=== PATIENT | female | born 1960 | race Caucasian/White ===

== ENCOUNTER 2017-04-09 23:53 | Emergency (ER) | payer OTHER ==
[~2017-04-09] VITALS: Ht 149.9 cm; Wt 49.0 kg
[2017-04-09] MEDS ORDERED: ETOMIDATE 20 MG INJ ONE (23:59)
[2017-04-09] MEDS ORDERED: SUCCINYLCHOLINE CHLORIDE 100 MG/5 ML SYG IV ONE (23:59)
[2017-04-10] VITALS: Ht 149.9 cm; Wt 49.0 kg
[2017-04-10] MEDS ORDERED: SOD CHLORIDE 0.9% 1,000 ML IV STA (00:07)
[2017-04-10] MEDS ORDERED: PROPOFOL 100 ML IV STA (00:07)
[2017-04-10] MEDS ORDERED: SUCCINYLCHOLINE CHLORIDE 100 MG/5 ML SYG IV STA (00:07)
[2017-04-10] MEDS ORDERED: ETOMIDATE 20 MG INJ IV STA (00:07)
[2017-04-10 00:20] LABS: ADD SCAN DIFF NO
[2017-04-10 00:23] LABS: BASOPHILS % 0.1 % (0.0-2.0); EOSINOPHILS # 0.1 10^3/ul (0.0-0.5); EOSINOPHILS % 0.9 % (0.0-7.0); HEMATOCRIT 30.5 % (37.0-47.0); LYMPHOCYTES # 0.7 10^3/ul (0.8-2.9); LYMPHOCYTES % 8.9 % (15.0-51.0); MEAN CORPUSCULAR HEMOGLOBIN 30.5 pg (29.0-33.0); MEAN CORPUSCULAR HGB CONC 32.8 g/dl (32.0-37.0); MEAN PLATELET VOLUME 8.9 fl (7.4-10.4); MONOCYTE # 0.7 10^3/ul (0.3-0.9); MONOCYTES % 8.1 % (0.0-11.0); NEUTROPHIL # 6.3 10^3/ul (1.6-7.5); NEUTROPHILS % 78.8 % (39.0-77.0); PLATELET COUNT 229 10^3/UL (140-415); RED BLOOD COUNT 3.28 10^6/ul (4.20-5.40); RED CELL DISTRIBUTION WIDTH 17.4 % (11.5-14.5)
[2017-04-10] MEDS ORDERED: LABETALOL HCL 20MG INJ IV PRN (00:30)
[2017-04-10 00:39] LABS: INR 1.04; PROTIME 13.6 Sec (12.2-14.2); PT RATIO 1.1
--- NOTE | 2017-04-10 00:39 | RADRPT ---
PROCEDURE: Noncontrast CT Head. CLINICAL INDICATION: Code stroke TECHNIQUE: Noncontrast CT of the head was obtained. The administered radiation dose was CTDI vol = 42 mGy, DLP = 720 mGy-cm. COMPARISON: No pertinent prior examinations were submitted for comparison. FINDINGS: The ventricles and cortical sulci are mild to moderately enlarged. There is mild to moderate decrea sed attenuation within the periventricular and subcortical white matter compatible with chronic micr ovascular changes. There is no acute intracranial hemorrhage or extra-axial fluid collection. There is no mass effect . No midline shift is identified. There is no loss of sykes-white differentiation to suggest acute in farction. The orbits are within normal limits. The paranasal sinuses are well aerated. No destructive osseous lesion is identified. IMPRESSION: No acute findings. Mild to moderate diffuse parenchymal volume loss and chronic microvascular salgado es. Findings were discussed with Divya Williamson R.N. at approximately 04/10/2017 12:35:13 AM. RPTAT: HIKT .Aníbal Najera MD, MD Date Time Electronically viewed and signed by .Aníbal Najera MD, on 04/10/2017 00:39 .T/
--- NOTE | 2017-04-10 00:39 | RADRPT ---
PROCEDURE: XR Chest. CLINICAL INDICATION: Shortness of breath. TECHNIQUE: AP Portable chest. COMPARISON: No pertinent prior examinations were submitted for comparison. FINDINGS: The cardiomediastinal silhouette is normal. The lungs are clear. The osseous structures are unrema rkable. An endotracheal tube tip is in the mid to distal trachea, 2 cm level of the satinder. A left subclavi an central venous catheter tip is in the superior vena cava. IMPRESSION: No acute findings. RPTAT: HIKT .Aníbal Najera MD, MD Date Time Electronically viewed and signed by .Aníbal Najera MD, MD on 04/10/2017 00:39 .T/
[2017-04-10 00:40] LABS: PARTIAL THROMBOPLASTIN TIME 50.2 Sec (25.0-35.0)
[2017-04-10 00:48] LABS: ALANINE AMINOTRANSFERASE 34 IU/L (13-69); ALBUMIN 3.5 g/dl (3.3-4.9); ALBUMIN/GLOBULIN RATIO 1.06; ALKALINE PHOSPHATASE 177 IU/L (42-121); ANION GAP 18 (8-16); ASPARTATE AMINO TRANSFERASE 42 IU/L (15-46); BILIRUBIN,INDIRECT 0.1 mg/dl (0-1.1); BILIRUBIN,TOTAL 0.1 mg/dl (0.2-1.3); BLOOD UREA NITROGEN 13 mg/dl (7-20); CALCIUM 8.8 mg/dl (8.4-10.2); CARBON DIOXIDE 24 mmol/L (21-31); CHLORIDE 96 mmol/L (97-110); CREATININE 0.54 mg/dl (0.44-1.00); GLUCOSE 230 mg/dl (70-220); SODIUM 133 mmol/L (135-144); TOTAL PROTEIN 6.8 g/dl (6.1-8.1)
[2017-04-10 01:01] LABS: TROPONIN-I < 0.012 ng/ml (0.00-0.12)
[2017-04-10 01:42] LABS: ADD UMIC YES; UR ASCORBIC ACID NEGATIVE (NEGATIVE); UR BACTERIA FEW /HPF (NONE SEEN); UR BILIRUBIN (Dip) NEGATIVE (NEGATIVE); UR BLOOD (Dip) 2+ mg/dL (NEGATIVE); UR CLARITY CLOUDY (CLEAR); UR COLOR YELLOW (YELLOW); UR GLUCOSE (Dip) 2+ mg/dL (NEGATIVE); UR KETONES (Dip) NEGATIVE (NEGATIVE); UR LEUKOCYTE ESTERASE (Dip) 3+ Leu/ul (NEGATIVE); UR MUCUS FEW /HPF (NONE SEEN); UR NITRITE (Dip) POSITIVE (NEGATIVE); UR RBC 9 /HPF (0-5); UR SPECIFIC GRAVITY (Dip) 1.016 (1.003-1.030); UR TOTAL PROTEIN (Dip) NEGATIVE (NEGATIVE); UR UROBILINOGEN (Dip) NEGATIVE (NEGATIVE)
[2017-04-10 01:45] LABS: BARBITURATES Negative (NEGATIVE); BENZODIAZEPINES Negative (NEGATIVE); CANNABINOIDS Negative (NEGATIVE); COCAINE Negative (NEGATIVE); OPIATES Positive (NEGATIVE)
[2017-04-10] MEDS ORDERED: FLO1 PO (02:05)
[2017-04-10] MEDS ORDERED: PRED5TAB PO (02:05)
[2017-04-10] MEDS ORDERED: MYCO360T PO (02:05)
[2017-04-10] MEDS ORDERED: TACR1CAP PO (02:05)
--- NOTE | 2017-04-10 03:03 | RADRPT ---
PROCEDURE: MR angiogram of the brain with and without contrast. CLINICAL INDICATION: Altered level of consciousness. TECHNIQUE: An MR angiogram of the brain was performed on a Signa HDxt 3 tiffany scanner. 3-D time-of -flight images of the [place] and vertebrobasilar systems were obtained before and after th e administration of 10 cc Magnevist intravenous contrast. Maximum intensity projection images were also obtained. Images were viewed on a PACS workstation. COMPARISON: None. FINDINGS: Bilateral distal internal carotid arteries are of normal course and caliber. Bilateral anterior and middle cerebral arteries are within normal limits. Bilateral distal vertebral arteries are of norm al course and caliber. The basilar artery is intact. Bilateral posterior cerebral arteries are with in normal limits. There is no large branch vessel stenosis or occlusion. There is no aneurysm or v ascular malformation. IMPRESSION: Unremarkable MR angiogram of the brain. .Cristofer Escobar MD, MD Date Time Electronically viewed and signed by .Cristofer Escobar MD, on 04/10/2017 03:02 .T/
--- NOTE | 2017-04-10 03:12 | RADRPT ---
PROCEDURE: MRI Brain without contrast. CLINICAL INDICATION: Altered mental status. TECHNIQUE: An MRI of the brain was performed on a Signa HDxt 3 tiffany scanner utilizing the followin g sequences: Axial T2 FLAIR, axial T2 PROP, coronal T2 gradient echo, sagittal T1 FLAIR, and axial d iffusion-weighted (EPI technique, l=[id number]) with ADC mapping. No intravenous contrast was given. Im ages were viewed on a PACS workstation. COMPARISON: Correlation is made with the CT done 04/10/2017. FINDINGS: The ventricles and cortical sulci are prominent consistent with mild cerebral volume loss. There ar e patchy areas of increased T2/FLAIR signal intensity within the periventricular white matter consis tent with mild chronic ischemic changes secondary to small vessel disease. There are chronic ischemi c changes within the geraldine. There are no areas of restricted diffusion. There is no mass effect or m idline shift. There is no acute intracranial hemorrhage or abnormal extra-axial collection. Normal signal voids are seen within the bilateral cavernous carotids. There is thinning of bilateral orbi blayne lens. Visualized paranasal sinuses and mastoid air cells are clear. IMPRESSION: No acute intracranial abnormality identified. Mild age-related volume loss and chronic ischemic white matter disease. .Cristofer Escobar MD, MD Date Time Electronically viewed and signed by .Cristofer Escobar MD, MD on 04/10/2017 03:11 .T/
[2017-04-10] MEDS ORDERED: AZTREONAM 1 GM/NS (PMX) 50 ML IVPB ONE (03:44)
[2017-04-10] MEDS ORDERED: MEROPENEM 1 GM/100 ML (PMX) 100 ML IVPB ONE (03:44)
[2017-04-10] MEDS ORDERED: SODIUM CHLORIDE 0.9% 1L BAG IV* ONE (03:44)
[2017-04-10 06:38] VITALS: BP 118/70; PULSE 94; RESP 17; TEMP 98.4
[2017-04-11 08:28] LABS: AADO2 Arterial 128.5 mmHg (7.0-24.0); Arterial Base Excess -2.4 mmol/L (-3.0-3); Arterial COHb 0.1 % (0.0-3.0); Arterial Fraction of Oxyhgb 98.6 % (93.0-99.0); Arterial HCO3 21.3 mmol/L (22.0-26.0); Arterial MetHb 0.3 % (0.0-1.5); Arterial Total Hemglobin 9.8 g/dl (12.0-18.0); MODE VENT - AC
--- NOTE | 2017-05-20 23:27 | ERD ---
ER Documentation Chief Complaint Date/Time DATE: 05/20/17 TIME: 23:25 Chief Complaint altered from SNF, non-verbal, agonal breathing HPI This is a 56 year female is altered from [facility] facility is nonverbal with agonal breathing. No fevers no chills no nausea no vomiting. Patient ambulates rate relate any relevant history. History per EMS run sheet custodial transfer sheet ROS All systems reviewed and are negative except as per history of present illness. Medications Home Meds Reported Medications Fludrocortisone* (Florinef*) 0.1 Mg Tab, 0.1 MG PO DAILY, TAB 04/10/17 Prednisone* (Prednisone*) 5 Mg Tab, 5 MG PO DAILY, TAB 04/10/17 Mycophenolate Sodium* (Myfortic*) 360 Mg Tablet.dr, 360 MG PO Q12, TAB TAKE 360 MG BY MOUTH Q8AM AND Q8PM 04/10/17 Tacrolimus* (Tacrolimus*) 1 Mg Capsule, 3 MG PO Q12, CAP TAKE 3mg BY MOUTH Q12H: 8AM AND 8PM 04/10/17 Allergies Allergies: Coded Allergies: NSAIDS (Non-Steroidal Anti-Inflamma (Verified Allergy, Intermediate, ) Penicillins (Verified Allergy, Intermediate, 04/10/17) ampicillin (Verified Allergy, Intermediate, 04/10/17) aspirin (Verified Allergy, Intermediate, 04/10/17) ciprofloxacin (Verified Allergy, Intermediate, 04/10/17) codeine (Verified Allergy, Intermediate, 04/10/17) PMhx/Soc History of Surgery: Yes (LIVER & KIDNEY TRANSPLANT, L HIP REPLACEMENT) Hx Psychiatric Problems: Yes (DEPRESSION) Hx Miscellaneous Medical Probl: Yes (DM2, RETINOPATHY, CHRONIC AP, BACK PAIN) Smoking Status: Unknown if ever smoked Physical Exam Physical Exam Const: [] Head: Atraumatic Eyes: Normal Conjunctiva ENT: Normal External Ears, Nose and Mouth. Neck: Full range of motion..~ No meningismus. Resp: Clear to auscultation bilaterally Cardio: Regular rate and rhythm, no murmurs Abd: Soft, non tender, non distended. Normal bowel sounds Skin: No petechiae or rashes Back: No midline or flank tenderness Ext: No cyanosis, or edema Neur: Obtunded Psych: Normal Mood and Affect Results 24 hrs Laboratory Tests Test 04/10/17 00:03 04/10/17 00:05 04/10/17 00:07 04/10/17 00:30 Bedside Glucose 225mg/dL White Blood Count 8.010^3/ul Red Blood Count 3.2810^6/ul Hemoglobin 10.0g/dl Hematocrit 30.5% Mean Corpuscular Volume 93.0fl Mean Corpuscular Hemoglobin 30.5pg Mean Corpuscular Hemoglobin Concent 32.8g/dl Red Cell Distribution Width 17.4% Platelet Count 90490^3/UL Mean Platelet Volume 8.9fl Neutrophils % 78.8% Lymphocytes % 8.9% Monocytes % 8.1% Eosinophils % 0.9% Basophils % 0.1% Nucleated Red Blood Cells % 0.0/100WBC Neutrophils # 6.310^3/ul Lymphocytes # 0.710^3/ul Monocytes # 0.710^3/ul Eosinophils # 0.110^3/ul Basophils # 0.010^3/ul Nucleated Red Blood Cells # 0.010^3/ul Prothrombin Time 13.6Sec Prothrombin Time Ratio 1.1 INR International Normalized Ratio 1.04 Activated Partial Thromboplast Time 50.2Sec Sodium Level 133mmol/L Potassium Level 5.0mmol/L Chloride Level 96mmol/L Carbon Dioxide Level 24mmol/L Anion Gap 18 Blood Urea Nitrogen 13mg/dl Creatinine 0.54mg/dl Glucose Level 230mg/dl Hemoglobin A1c 5.2% Lactic Acid Level 3.0mmol/L Calcium Level 8.8mg/dl Total Bilirubin 0.1mg/dl Direct Bilirubin 0.00mg/dl Indirect Bilirubin 0.1mg/dl Aspartate Amino Transf (AST/SGOT) 42IU/L Alanine Aminotransferase (ALT/SGPT) 34IU/L Alkaline Phosphatase 177IU/L Troponin I < 0.012ng/ml Total Protein 6.8g/dl Albumin 3.5g/dl Globulin 3.30g/dl Albumin/Globulin Ratio 1.06 Blood Gas Specimen Source Blood arterial Arterial Blood Date Drawn 04/10/2017 1:00:00 AM Arterial Blood pH (Temp corrected) 7.430 Arterial Blood pCO2 (Temp correct) 32.9mmhg Arterial Blood pO2 (Temp corrected) 551.6mmHG Arterial Blood HCO3 21.3mmol/L Arterial Blood Base Excess -2.4mmol/L Arterial Blood Oxygen Saturation 99.0mmHG Axel Test N/A Arterial Blood Gas Puncture Site Right Brachial Arterial Blood Carboxyhemoglobin 0.1% Arterial Blood Methemoglobin 0.3% Blood Gas A-a O2 Differential 128.5mmHg Oxyhemoglobin Percent 98.6% Total Hemoglobin 9.8g/dl Blood Gas Temperature 37.0C Blood Gas Respiration Rate 16.0 Blood Gas Actual Respiration Rate 25 Blood Gas Modality VENT - AC FiO2 100.0% Blood Gas Tidal Volume 500.0mL Blood Gas Low PEEP Setting 5.0cmH2O Blood Gas Inspiratory Pressure 33.0 Blood Gas Notified Whom KM Blood Gas Notified Time 04/10/2017 1:05:00 AM Urine Color YELLOW Urine Clarity CLOUDY Urine pH 6.0 Urine Specific [place] 1.016 Urine Ketones NEGATIVEmg/dL Urine Nitrite POSITIVEmg/dL Urine Bilirubin NEGATIVEmg/dL Urine Urobilinogen NEGATIVEmg/dL Urine Leukocyte Esterase 3+Chad/ul Urine Microscopic RBC 9/HPF Urine Microscopic WBC > 182/HPF Urine Bacteria FEW/HPF Urine Mucus FEW/HPF Urine Hemoglobin 2+mg/dL Urine Glucose 2+mg/dL Urine Total Protein NEGATIVEmg/dl Urine Opiates Screen Positive Urine Barbiturates Negative Urine Amphetamines Screen Negative Urine Benzodiazepines Screen Negative Urine Cocaine Screen Negative Urine Cannabinoids Negative Current Medications Medications (Trade) Dose Ordered Sig/Alexei Route PRN Reason Start Time Stop Time Status Last Admin Dose Admin Sodium Chloride (NS) 1,000 ml @ 1,000 mls/hr Q1H STAT IV 04/10/17 00:07 04/10/17 01:06 DC 04/10/17 00:31 Labetalol HCl (Labetalol) 20 mg Q20M PRN IV ELEVATED BLOOD PRESSURE 04/10/17 00:30 04/10/17 07:32 DC 04/10/17 00:17 Succinylcholine Chloride (Anectine Syringe) 100 mg ONCE STAT IV 04/10/17 00:07 04/10/17 00:09 DC 04/10/17 00:18 Etomidate 20 mg 20 mg ONCE STAT IV 04/10/17 00:07 04/10/17 00:09 DC 04/10/17 00:07 Propofol (Diprivan) 100 ml @ 2.25 mls/hr ONCE STAT IV 04/10/17 00:07 04/10/17 07:32 DC 04/10/17 00:18 Sodium Chloride 1520 ml 1,520 ml BOLUS OVER 2 HOURS ONCE IV* 04/10/17 03:44 04/10/17 03:47 DC 04/10/17 04:05 Meropenem 100 ml @ 200 mls/hr ONCE ONCE IVPB 04/10/17 03:44 04/10/17 04:13 DC 04/10/17 04:53 Aztreonam (Azactam 1gm/NS (Pmx)) 50 ml @ 100 mls/hr ONCE ONCE IVPB 04/10/17 03:44 04/10/17 04:13 DC 04/10/17 04:21 Etomidate (Amidate) 20 mg STK-MED ONCE .ROUTE 04/09/17 23:59 04/10/17 20:29 DC Succinylcholine Chloride (Anectine Syringe) 100 mg STK-MED ONCE IV 04/09/17 23:59 04/10/17 20:29 DC Procedures/MDM Endotracheal Intubation by me: Pre assessment performed. See preceding note for details. Pre-oxygenation performed with 100% oxygen RSI: Performed w/o complication or hypoxic events. Medications as ordered. Blade: [Mac 4] ET Tube: 7.5 cm Depth: 23 cm at the lip Intubation confirmed by colorimetric CO2, equal breath sounds, quiet over the stomach. Chest X-ray 1V Interpreted by me: 2 cm above the satinder ET tube. Normal soft tissue, No pneumothorax. Central Line Placement by me: Patient consented, sterilely draped, full prep, gown, glove, mask, time out performed. Anesthesia: 1% lidocaine locally Location: Left subclavian Device: Multiple lumen Technique: Seldinger technique. Secured with suture. Results: Venous return from all ports with easy saline flush. No complications. [Chest X-ray 1V Interpreted by me: Central line in SVC, Normal soft tissue, No evidence of pneumothorax.] Medical decision-m[age] year female acute alteration in mental status or necessitating mechanical ventilation. Patient at this point has been stabilized but is critical. Patient will be transferred to [place] pending stability Critical Care: Time: 35 minutes Treatments/Evaluations: Close monitoring and treatment of unstable vital signs, cardiorespiratory, and neurologic status, while maintaining tight balance of fluid, respiratory, and cardiac interventions. Departure Diagnosis: Primary Impression: Altered level of consciousness Condition: Critical MARIO MOELLER May 20, 2017 23:27
== END 2017-04-10 07:31 | disposition short-term general hospital (02) ==
LOC: E/R 23:53
DX: R40.4 Transient alteration of awareness (principal); R40.2212 Coma scale, best verbal response, none, at arrival to emergency department; R40.2352 Coma scale, best motor response, localizes pain, at arrival to emergency department; R40.2122 Coma scale, eyes open, to pain, at arrival to emergency department; R06.02 Shortness of breath; Z96.642 Presence of left artificial hip joint
CPT/HCPCS: 31500; 36415; 36556; 36600; 70450; 70545; 70551; 71010; 80053; 80307; 81001; 82803; 82962; 83036; 83605; 84484; 85025; 85610; 85730; 93005; 94002; 96361; 96365; 96366; 96375; 99291; J2185; J7030; J7999